=== PATIENT | female | born 1935 | race Caucasian/White ===

== ENCOUNTER 2019-09-24 06:02 | Inpatient (IN) ==
[2019-09-24] MEDS ORDERED: Albuterol 2.5 MG/3 ML NEBULIZER IH PRN (06:28)
[2019-09-24] MEDS ORDERED: CeFAZolin Syr 2,000MG/20 ML 2,000 MG/20 ML SYRINGE IVPB ONE (06:28)
[2019-09-24] MEDS ORDERED: Ringers Solution, Lactated 1,000 ML IVC SCH ×2 (06:30→15:09)
[2019-09-24] MEDS ORDERED: Famotidine 20 MG/2 ML VIAL IVP ONE (07:01)
[2019-09-24] MEDS ORDERED: Acetaminophen IV 1,000 MG/100 ML INFUS..BTL IVPB ONE (07:02)
[2019-09-24] MEDS ORDERED: *HR* OxyCODONE Immed Rel 5 MG TABLET PO PRN ×2 (07:07→15:09)
[2019-09-24] MEDS ORDERED: Ondansetron 4 MG/2 ML VIAL IVP ONE (07:07)
[2019-09-24] MEDS ORDERED: *HR* Labetalol 20 MG/4 ML SYRINGE IVP PRN (07:07)
[2019-09-24] MEDS ORDERED: Dexamethasone 4 MG/ML VIAL ONE (07:09)
[2019-09-24] MEDS ORDERED: *HR* FentaNYL (PF) 100 MCG/2 ML VIAL ONE (07:09)
[2019-09-24] MEDS ORDERED: Ondansetron 4 MG/2 ML VIAL ONE (07:09)
[2019-09-24] MEDS ORDERED: Lidocaine HCL 4 ML Topical Solution (Laryng-O-Jet Kit Sterile Pak) TP ONE (07:09)
[2019-09-24] MEDS ORDERED: Lidocaine -MPF 2% 2 ML VIAL ONE (07:09)
[2019-09-24] MEDS ORDERED: *HR* Propofol 200 MG/20 ML VIAL IVP ONE (07:09)
[2019-09-24] MEDS ORDERED: *HR* Succinylcholine 200 MG/10 ML VIAL IVP ONE (07:09)
[2019-09-24] MEDS ORDERED: Ethanol\\Acetic Acid\\Na Ace\\Ben 1,000 ML IRRIG.SOLN IR ONE (07:11)
[2019-09-24] MEDS ORDERED: ROPIVACAINE/PF/NS 0.25% 1 EACH SYRINGE INTRAART ONE (07:27)
[2019-09-24] MEDS ORDERED: Ropivacaine/PF 0.5% 30 ML VIAL ONE (07:27)
[2019-09-24] MEDS ORDERED: EPHEDrine 50 MG/ML VIAL ONE (07:55)
[2019-09-24 09:27] LABS: Hematocrit 33.6 % (35.3-44.9)
[2019-09-24] MEDS ORDERED: *HR* OxyCODONE/APAP 5/325 TABLET PO PRN (15:09)
[2019-09-24] MEDS ORDERED: Dextrose Gel 15 GM/37.5 ML TUBE PO PRN ×2 (15:09)
[2019-09-24] MEDS ORDERED: D5% in Water 1,000 ML IVC PRN (15:09)
[2019-09-24] MEDS ORDERED: MOM Conc 10 ML UD.LIQ PO PRN (15:09)
[2019-09-24] MEDS ORDERED: Ondansetron 4 MG/2 ML VIAL IVP PRN (15:09)
[2019-09-24] MEDS ORDERED: *HR* Dextrose 50 % in Water (Syg) 50 ML SYRINGE IVP PRN (15:09)
[2019-09-24] MEDS ORDERED: Naloxone 0.4 MG/ML INJ IVP PRN (15:09)
[2019-09-24] MEDS ORDERED: Sennosides 8.6 MG TABLET PO PRN (15:09)
[2019-09-24] MEDS: Multivit/Ca/Min/Fe/FA 1 TAB TABLET PO SCH (16:18)
[2019-09-24] MEDS: ceFAZolin 2,000 MG in 0.9 % Sodium Chloride 100 ML IVPB SCH ×2 (16:22→23:44)
[2019-09-24] MEDS: Insulin LISPRO 300 UNITS/3 ML VIAL SQ SCH (16:30)
[2019-09-24] MEDS: *HR* Enoxaparin 30 MG/0.3 ML SYRINGE SQ SCH (16:58)
[2019-09-24] MEDS ORDERED: tiZANidine 4 MG TABLET PO PRN (17:13)
[2019-09-24] MEDS ORDERED: *HR* Enoxaparin 30 MG/0.3 ML SYRINGE SQ SCH (18:00)
[2019-09-24] MEDS ORDERED: Insulin LISPRO 300 UNITS/3 ML VIAL SQ SCH (21:00)
[2019-09-25 02:10] LABS: Hematocrit 32.7 % (35.3-44.9); Hemoglobin 10.5 g/dL (11.5-15.4)
[2019-09-25 02:29] LABS: BUN/Creatinine Ratio 29 (6-26); Blood Urea Nitrogen 24 mg/dL (8-23); Calcium 8.7 mg/dL (8.6-10.3); Carbon Dioxide 27 mEq/L (23-29); Chloride 106 mEq/L (98-107); Glucose 130 mg/dL (70-105); Osmolality,Calculated 292 (280-300); Potassium 4.2 mEq/L (3.5-5.1); Sodium 138 mEq/L (136-145); eGFR For African Americans > 60 (> 60); eGFR For Non-African Americans > 60 (> 60)
[2019-09-25] MEDS: *HR* Enoxaparin 30 MG/0.3 ML SYRINGE SQ SCH (05:30)
[2019-09-25] MEDS: Multivit/Ca/Min/Fe/FA 1 TAB TABLET PO SCH (07:51)
[2019-09-25] MEDS: Insulin LISPRO 300 UNITS/3 ML VIAL SQ SCH (07:51)
[2019-09-25 10:28] VITALS: BP 110/66
[2019-09-25] MEDS ORDERED: FLU Vac QV 19-20 (6Month+)/PF 0.5 ML SYRINGE IM ONE (10:40)
== END 2019-09-25 11:58 | disposition home or self-care (01) | DRG 483 ==
LOC: SAMDAY 06:02 → 3NENU 09:46
PROVIDERS: ADMIT Orthopaedic Surgery; ATTEND Orthopaedic Surgery